=== PATIENT | male | born 1960 | race Caucasian/White ===

== ENCOUNTER 2021-03-15 07:31 | Emergency (ER) | payer OTHER ==
[2021-03-15 07:58] VITALS: BP 132/74; PULSE 93; TEMP 98.2; BMI 26.4
[2021-03-15] MEDS ORDERED: METHOCARBAMOL 500 MG TABLET PO ONE (08:04)
[2021-03-15] MEDS ORDERED: KETOROLAC TROMETHAMINE 15 MG/ML VIAL IM ONE (08:04)
[2021-03-15] MEDS ORDERED: LIDOCAINE 5% TOPICAL PATCH TP ONE (08:04)
[2021-03-15] MEDS ORDERED: KETOROLAC TROMETHAMINE 15 MG/ML VIAL ONE (08:09)
[2021-03-15] MEDS ORDERED: METHOCARBAMOL 500 MG TABLET ONE (08:09)
[2021-03-15] MEDS ORDERED: LIDOCAINE 5% TOPICAL PATCH ONE (08:09)
== END 2021-03-15 11:01 | disposition home or self-care (01) ==
LOC: JERFT 07:31 → JER 07:31 → JERFT 11:01
PROC: 3E0233Z Introduction of Anti-inflammatory into Muscle, Percutaneous Approach (ICD-10-PCS; principal; 2021-03-15)
DX: S39.012A Strain of muscle, fascia and tendon of lower back, initial encounter (principal); M54.5 Low back pain; W01.190A Fall on same level from slipping, tripping and stumbling with subsequent striking against furniture, initial encounter; X50.0XXA Overexertion from strenuous movement or load, initial encounter; Y92.238 Other place in hospital as the place of occurrence of the external cause
CPT/HCPCS: 99284-25